=== PATIENT | female | born 1990 | race American Indian/Alaskan Native ===

== ENCOUNTER 2021-04-08 00:57 | Emergency (ER) | payer SELFPAY ==
[2021-04-08 01:15] VITALS: BP 135/80
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
[2021-04-08 03:42] LABS: Basophils % (Auto) 0.5 % (0.0-1.8); Eosinophils # (Auto) 0.1 K/mm3 (0.0-0.4); Eosinophils % (Auto) 1.1 % (0.0-4.3); Hemoglobin 12.6 gm/dl (10.1-14.3); Lymphocytes % (Auto) 35.5 % (13.4-35.0); Mean Corpuscular HGB Conc 34 % (30-34); Mean Corpuscular Volume 86 fl (79-97); Monocytes # (Auto) 0.4 K/mm3 (0.0-0.8); Monocytes % (Auto) 4.8 % (0.0-7.3); Platelet Count 231 K/mm3 (140-440); Red Blood Count 4.29 M/mm3 (3.65-5.03); Red Cell Distribution Width 13.5 % (13.2-15.2)
[2021-04-08 04:04] LABS: Alanine Aminotransferase 9 units/L (7-56); Blood Urea Nitrogen 14 mg/dL (7-17); Calcium 9.4 mg/dL (8.4-10.2); Hemolysis Index 10
[2021-04-08 04:12] LABS: Hepatitis B Surface Antigen Non-Reactive (Negative); Hepatitis C Virus Antibody Non-Reactive (NonReactive)
[2021-04-08 04:14] LABS: BUN/Creatinine Ratio 20
== END 2021-04-08 03:30 | disposition home or self-care (01) ==
LOC: ED 00:57
DX: Z77.21 Contact with and (suspected) exposure to potentially hazardous body fluids (principal); Z90.49 Acquired absence of other specified parts of digestive tract; Z79.899 Other long term (current) drug therapy
CPT/HCPCS: 36415; 80053; 80074; 84703; 85025

== ENCOUNTER 2021-11-11 00:16 | Emergency (ER) | payer OTHER ==
[2021-11-11] MEDS ORDERED: IBUPROFEN 800 MG TAB PO ONE (00:20)
--- NOTE | 2021-11-11 00:28 | Emergency Department Report ---
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 There is no abrasion laceration or bleeding. No obvious deformity. Pain rated at 5/10 ED Review of Systems ROS: Stated complaint: LEFT HAND INJURY Other details as noted in HPI Constitutional: denies: chills, fever Eyes: denies: eye pain, eye discharge, vision change ENT: denies: ear pain, throat pain Respiratory: denies: cough, shortness of breath, wheezing Cardiovascular: denies: chest pain, palpitations Endocrine: no symptoms reported Gastrointestinal: denies: abdominal pain, nausea, vomiting, diarrhea Genitourinary: denies: urgency, dysuria, discharge Musculoskeletal: as per HPI, other (left hand pain ) Skin: denies: rash, lesions Neurological: denies: headache, weakness, paresthesias Psychiatric: denies: anxiety, depression Hematological/Lymphatic: denies: easy bleeding, easy bruising ED Past Medical Hx - Surgical History Additional Surgical History: Appendectomy - Social History Smoking Status: Never Smoker Substance Use Type: None - Medications Home Medications: Home Medications Medication Instructions Recorded Confirmed Last Taken Type RX: Ofloxacin 0.3% [Ocuflox 0.3% 2 drops OU Q3H #1 bottle 04/08/21 Unknown Rx opth] RX: Ibuprofen [Motrin 800 MG tab] 800 mg PO Q8HR PRN #30 tablet 11/11/21 Unknown Rx Upper Extremity Exam - Exam General: Vital signs noted. No distress. Alert and acting appropriately. Head and Torso: No HEENT Abnormality, No Neck Tenderness, No Chest/Lungs Abnormality, No Abdominal Tenderness, No Back Tenderness Shoulder Exam: Yes Normal Range of Motion in Shoulder, No Shoulder Tenderness, No Clavicle Tenderness, No Shoulder Deformity, No AC Joint Tenderness Arm Exam: No Arm/Humerus Tenderness, No Arm Deformity Elbow: No Elbow Tenderness, No Normal Range of Motion in Elbow, No Elbow Deformity Forearm: No Forearm Tenderness, No Forearm Deformity, No Pain with Pronation, No Pain with Supination Wrist: Yes Normal ROM in Wrist, No Wrist Tenderness, No Wrist Deformity, No Snuffbox Tenderness, No Pain with Axial Thumb Compression Hand: Yes Hand Tenderness (left chu tenderness no erythema no crepitius no deformity no swelling ), No Hand Deformity, No Digit Tenderness, No Normal ROM in Digit(s) (restricted by giuseppe, inpatient pharmacist <3 sec bilat ), No Digit(s) Deformity, No Tendon Dysfunction CMS Exam: Yes Normal Distal Pulses, Yes Normal Capillary Refill, Yes Normal Distal Sensation, No Broken Skin ED Medical Decision Making - Radiology Data Radiology results: report reviewed, image reviewed INDICATION / CLINICAL INFORMATION: left hand pain COMPARISON: None available. FINDINGS: BONES / JOINT(S): No acute fracture or subluxation. No significant arthritis. SOFT TISSUES: No significant abnormality. ADDITIONAL FINDINGS: None. IMPRESSION: No acute osseous findings of the left hand. Signer Name: Reynaldo Ni MD Signed: 11/11/2021 1:10 AM Workstation Name: [id number] - Medical Decision Making X-rays negative for fracture dislocation or subluxation. Plan DC to home, wrist splint, NSAIDs as needed pain, follow-up with PCP in 2 to 3 days. Follow-up with job Workmen's Comp. doctor as directed. Follow-up with employee health in a.m. Critical care attestation.: If time is entered above; I have spent that time in minutes in the direct care of this critically ill patient, excluding procedure time. ED Disposition Clinical Impression: Sprain of hand, left Qualifiers: Encounter type: initial encounter Qualified Code(s): S63.92XA - Sprain of unspecified part of left wrist and hand, initial encounter Disposition: HOME / SELF CARE / HOMELESS Is pt being admited?: No Does the pt Need Aspirin: No Condition: Stable Instructions: How to Use Cold Therapy, [id number], Intermetacarpal Sprain Additional Instructions: Take medications as prescribed, use splint as directed, follow-up with orthopedics in 2 to 3 days. Return to emergency department should symptoms worsen. Prescriptions: RX: Ibuprofen [Motrin 800 MG tab] 800 mg PO Q8HR PRN #30 tablet PRN Reason: Pain Referrals: IRMA SALGADO MD [Staff Physician] - 3-5 Days [employer] [LAB/CONTRACT] - [facility] Forms: Work/School Release Form(ED) Time of Disposition: 01:30
--- NOTE | 2021-11-11 01:15 | XRay Report ---
XR hand 3+V LT INDICATION / CLINICAL INFORMATION: left hand pain COMPARISON: None available. FINDINGS: BONES / JOINT(S): No acute fracture or subluxation. No significant arthritis. SOFT TISSUES: No significant abnormality. ADDITIONAL FINDINGS: None. IMPRESSION: No acute osseous findings of the left hand. Signer Name: Reynaldo Ni MD Signed: 11/11/2021 1:10 AM Workstation Name: [id number]
[2021-11-11 02:05] VITALS: BP 133/80
== END 2021-11-11 02:07 | disposition home or self-care (01) ==
LOC: ED 00:16
DX: S63.92XA Sprain of unspecified part of left wrist and hand, initial encounter (principal); Z90.89 Acquired absence of other organs; X58.XXXA Exposure to other specified factors, initial encounter; Y93.89 Activity, other specified; Y92.89 Other specified places as the place of occurrence of the external cause; Y99.8 Other external cause status
CPT/HCPCS: 99283